=== PATIENT | male | born 1950 | race Caucasian/White ===

== ENCOUNTER 2017-11-15 10:15 | Inpatient (IN) | payer OTHER ==
[~2017-11-15] VITALS: Ht 180.3 cm; Wt 99.8 kg
[2017-11-15] MEDS ORDERED: TOPROL XL50 M1 PO (11:45)
[2017-11-15] MEDS ORDERED: LEVO-T25 MCG PO (11:46)
[2017-11-15] MEDS ORDERED: COUMADIN2.5 MG PO (11:46)
[2017-11-29] MEDS ORDERED: LOVENOX40 MG/0.4 SUBCUTANEO (14:21)
[2017-11-29] MEDS ORDERED: TOPROL XL50 M1 PO (14:21)
[2017-11-29] MEDS ORDERED: DICY20TA PO (14:21)
[2017-11-29] MEDS ORDERED: ULTRACET PO (14:21)
[2017-11-29] MEDS ORDERED: NORVASC2.5 M1 PO (14:21)
[2017-11-29] MEDS ORDERED: COUMADIN5 MG PO (14:21)
== END 2017-11-29 16:36 | disposition home or self-care (01) | DRG 331 ==
LOC: SURH 11-24 07:00 → O/R 11-24 08:07 → SURH 11-24 08:07 → SURG 11-24 15:27 → MEDI 11-24 15:34 → SURH 11-24 15:34
PROVIDERS: Surgery; Urology
PROC: 07TC4ZZ Resection of Pelvis Lymphatic, Percutaneous Endoscopic Approach (ICD-10-PCS; 2017-11-24)
PROC: 0TN74ZZ Release Left Ureter, Percutaneous Endoscopic Approach (ICD-10-PCS; 2017-11-24)
PROC: 0T778DZ Dilation of Left Ureter with Intraluminal Device, Via Natural or Artificial Opening Endoscopic (ICD-10-PCS; 2017-11-24)
PROC: 4A033R1 Measurement of Arterial Saturation, Peripheral, Percutaneous Approach (ICD-10-PCS; 2017-11-24)
PROC: 4A12X4Z Monitoring of Cardiac Electrical Activity, External Approach (ICD-10-PCS; 2017-11-24)
PROC: 0DTN4ZZ Resection of Sigmoid Colon, Percutaneous Endoscopic Approach (ICD-10-PCS; principal; 2017-11-24 07:00)
PROC: 0DTP4ZZ Resection of Rectum, Percutaneous Endoscopic Approach (ICD-10-PCS; 2017-11-24 07:00)
DX: C18.7 Malignant neoplasm of sigmoid colon (principal); R59.0 Localized enlarged lymph nodes; N13.5 Crossing vessel and stricture of ureter without hydronephrosis; Z79.01 Long term (current) use of anticoagulants; E03.8 Other specified hypothyroidism; E66.8 Other obesity; G47.33 Obstructive sleep apnea (adult) (pediatric); I11.9 Hypertensive heart disease without heart failure; E11.9 Type 2 diabetes mellitus without complications; I48.0 Paroxysmal atrial fibrillation; D50.0 Iron deficiency anemia secondary to blood loss (chronic)